=== PATIENT | male | born 1970 | race Caucasian/White ===

== ENCOUNTER 2018-07-23 12:39 | Emergency (ER) | payer BC ==
[2018-07-23] MEDS ORDERED: Sodium Chloride 0.9% 1000 ML 1,000 ML IV SCH (13:00)
[2018-07-23] MEDS ORDERED: TORAdol 30 mg Injection IV ONE (13:01)
[2018-07-23] MEDS ORDERED: Hydromorphone 1 mg/ml Ampule IV ONE (13:01)
[2018-07-23] MEDS ORDERED: Zofran 4 MG/2 ML VIAL IV ONE (13:01)
[2018-07-23] MEDS ORDERED: TORAdol 30 mg Injection ONE (13:03)
[2018-07-23] MEDS ORDERED: Zofran 4 MG/2 ML VIAL ONE (13:03)
[2018-07-23] MEDS ORDERED: Sodium Chloride 0.9% 1000 ML 1,000 ML ONE (13:04)
[2018-07-23] MEDS ORDERED: Hydromorphone 1 mg/ml Ampule ONE (13:04)
[2018-07-23 13:12] LABS: BASOPHIL % 0.4 % (0.0-0.4); Basophil (Absolute #) 0.03 (0-0.4); Eosinophil % 2.3 % (0.00-5.0); Eosinophil (Absolute #) 0.17 (0-0.5); Granulocyte Absolute (ANC) 4.28 (1.4-6.9); Hematocrit 42.6 % (42-50); Hemoglobin 14.7 gm/dl (12.5-18.0); Lymphocyte (Absolute #) 1.73 (1.0-4.6); Lymphocytes % 23.8 % (24.0-44.0); Mean Cell Volume 92.6 fl (78-100); Mean Corpuscular Hgb Concent. 34.5 g/dl (32-36); Monocyte (Absolute #) 1.05 (0.0-1.3); Monocytes % 14.5 % (0.0-12.0); Platelet Count 211 K/mm3 (150-450); White Blood Count 7.3 K/mm3 (4.0-10.5)
--- NOTE | 2018-07-23 13:15 | ERPHSYRPT ---
- History of Present Illness Time Seen by Provider: 07/23/18 12:50 Source: patient Physician History: Patient with a history of kidney stones underwent lithotripsy 6 days ago, followed by a ureter stent insertion the following day at [facility] in [facility], complains of increasing lower abdominal pain over the past 24 hours associated with inability to urinate except for dribbling small amounts and increasing lower abdominal distention. Timing/Duration: today Activites at Onset: none Quality: throbbing Onset Location: suprapubic Pain Radiation: none Severity of Pain-Max: severe Severity of Pain-Current: severe Modifying Factors: Improves With: urinating Associated Symptoms: abdominal pain, urinary frequency Prior abdominal problems: similar symptoms - Review of Systems Constitutional: No Fever, No Chills Eyes: No Symptoms Ears, Nose, & Throat: No Symptoms Respiratory: No Symptoms, No Cough, No Dyspnea Cardiac: No Symptoms, No Chest Pain, No Edema, No Syncope Abdominal/Gastrointestinal: Abdominal Pain, No Nausea, No Vomiting, No Diarrhea Genitourinary Symptoms: Frequency, Incontinence, Urinary Retention, No Dysuria Musculoskeletal: No Symptoms, No Back Pain, No Neck Pain Skin: No Rash Neurological: No Dizziness, No Focal Weakness, No Sensory Changes Psychological: No Symptoms Endocrine: No Symptoms All Other Systems: Reviewed and Negative - Nursing Vital Signs Nursing Vital Signs: Initial Vital Signs Temperature 97.8 F 07/23/18 12:53 Pulse Rate 103 H 07/23/18 12:53 Respiratory Rate 26 H 07/23/18 12:53 Blood Pressure 163/109 07/23/18 12:53 O2 Sat by Pulse Oximetry 100 07/23/18 12:53 Pain Scale Pain Intensity 3 - Physical Exam General Appearance: severe distress Eye Exam: PERRL/EOMI Ears, Nose, Throat Exam: normal ENT inspection Neck Exam: normal inspection, supple Respiratory Exam: normal breath sounds, lungs clear Cardiovascular Exam: regular rate/rhythm, No edema Gastrointestinal/Abdomen Exam: distention (MARKED SUPRAPUBIC DISTENTION TO LEVEL OF UMBILICUS) Back Exam: No CVA tenderness Extremity Exam: normal range of motion, No pedal edema Neurologic Exam: alert, oriented x 3 Ordered Tests: Active Orders 24 hr Category Date Time Status Parker [Catheter-[place] Parker] STAT Care 07/23/18 13:26 Active IV Insertion STAT Care 07/23/18 12:59 Active KUB Stat Exams 07/23/18 13:00 Taken BMP Stat Lab 07/23/18 12:56 Completed CBC W DIFF Stat Lab 07/23/18 12:56 Completed CULTURE,URINE Stat Lab 07/23/18 13:15 Received UA W/RFX UR CULTURE Stat Lab 07/23/18 13:15 Completed Medication Summary Generic Name Dose Route Start Last Admin Trade Name Frelamar PRN Reason Stop Dose Admin Sodium Chloride 1,000 mls @ 100 mls/hr 07/23/18 13:00 07/23/18 13:13 Sodium Chloride 0.9% 1000 Ml IV 08/22/18 12:59 100 mls/hr .Q10H TY Administration Discontinued Medications Generic Name Dose Route Start Last Admin Trade Name Freq PRN Reason Stop Dose Admin Hydromorphone HCl 1 mg 07/23/18 13:01 07/23/18 13:12 Hydromorphone 1 Mg/Ml Ampule IV 07/23/18 13:02 1 mg STAT ONE Administration Hydromorphone HCl Confirm 07/23/18 13:04 Hydromorphone 1 Mg/Ml Ampule Administered 07/23/18 13:05 Dose 1 mg .ROUTE .STK-MED ONE Ceftriaxone Sodium/Dextrose 1 g in 50 mls @ 100 mls/hr 07/23/18 13:46 14:16 Rocephin 1 Gm-D5w 50 Ml Bag IV 07/23/18 14:15 50 ml/hr STAT STA 50 mls/hr Administration Ceftriaxone Sodium/Dextrose Confirm 07/23/18 13:56 Rocephin 1 Gm-D5w 50 Ml Bag Administered 07/23/18 13:57 Dose 1 g in 50 mls @ ud IV .STK-MED ONE Ketorolac Tromethamine 30 mg 07/23/18 13:01 07/23/18 13:11 Toradol 30 Mg Injection IV 07/23/18 13:02 30 mg STAT ONE Administration Ketorolac Tromethamine Confirm 07/23/18 13:03 Toradol 30 Mg Injection Administered 07/23/18 13:04 Dose 30 mg .ROUTE .STK-MED ONE Ondansetron HCl 4 mg 07/23/18 13:01 07/23/18 13:11 Zofran 4 Mg/2 Ml Vial IV 07/23/18 13:02 4 mg STAT ONE Administration Ondansetron HCl Confirm 07/23/18 13:03 Zofran 4 Mg/2 Ml Vial Administered 07/23/18 13:04 Dose 4 mg .ROUTE .STK-MED ONE Lab/Rad Data: Laboratory Result Diagrams 07/23/18 12:56 07/23/18 12:56 Laboratory Results 07/23/18 07/23/18 07/23/18 Range/Units 13:15 12:56 12:56 WBC 7.3 (4.0-10.5) K/mm3 RBC 4.60 (4.1-5.6) M/mm3 Hgb 14.7 (12.5-18.0) gm/dl Hct 42.6 (42-50) % MCV 92.6 (78-100) fl MCH 32.0 (26-32) pg MCHC 34.5 (32-36) g/dl RDW 12.0 (11.5-14.0) % Plt Count 211 (150-450) K/mm3 MPV 10.0 H (6-9.5) fl Gran % 59.0 (36.0-66.0) % Eos # (Auto) 0.17 (0-0.5) Absolute Lymphs (auto) 1.73 (1.0-4.6) Absolute Monos (auto) 1.05 (0.0-1.3) Lymphocytes % 23.8 L (24.0-44.0) % Monocytes % 14.5 H (0.0-12.0) % Eosinophils % 2.3 (0.00-5.0) % Basophils % 0.4 (0.0-0.4) % Absolute Granulocytes 4.28 (1.4-6.9) Basophils # 0.03 (0-0.4) Sodium 139 (137-145) mmol/L Potassium 3.5 (3.5-5.1) mmol/L Chloride 101 (98-107) mmol/L Carbon Dioxide 24 (22-30) mmol/L Anion Gap 17.5 H (5-15) MEQ/L BUN 18 (9-20) mg/dL Creatinine 1.00 (0.66-1.25) mg/dL Estimated GFR > 60.0 ML/MIN Glucose 111 H (74-106) mg/dL Calcium 9.6 (8.4-10.2) mg/dL Urine Color BROWN (YELLOW) Urine Appearance SLIGHTLY CLOUDY (CLEAR) Urine pH 8.0 (5-6) Ur Specific [place] 1.009 (1.005-1.025) Urine Protein 100 (Negative) Urine Ketones NEGATIVE (NEGATIVE) Urine Blood LARGE (0-5) Damian/ul Urine Nitrite NEGATIVE (NEGATIVE) Urine Bilirubin NEGATIVE (NEGATIVE) Urine Urobilinogen NEGATIVE (0-1) mg/dL Ur Leukocyte Esterase SMALL (NEGATIVE) Urine WBC (Auto) 26-50 (0-5) /HPF Urine RBC (Auto) >101 (0-2) /HPF U Epithel Cells (Auto) NONE (FEW) /HPF Urine Bacteria (Auto) MODERATE (NEGATIVE) /HPF Urine Mucus (Auto) SLIGHT (NEGATIVE) /HPF Urine Culture Reflexed YES (NO) Urine Glucose NEGATIVE (NEGATIVE) mg/dL - Progress Progress: improved Progress Note: 07/23/18 14:25 IV NORMAL SALINE 200ML/HR, ZOFRAN 4MG, TORADOL 30MG, DILAUDID 1MG IV, INSERTION OF PARKRE CATHETER, ROCEPHIN 1GM IVPB FOR UTI WBC 26-50 07/23/18 14:55, TOTAL URINE OUTPUT OF 1500ML Counseled pt/family regarding: lab results, diagnosis, need for follow-up, rad results - Departure Time of Disposition: 15:00 Departure Disposition: Home Clinical Impression: ACUTE URINARY RETENTION, URINARY TRACT INFECTION, RECENT BILATERAL URETER STENTS Condition: Stable Critical Care Time: No Referrals: DOCTOR,NO FAMILY [Primary Care Provider] - Additional Instructions: MAINTAIN THE PARKER CATHETER WITH LEG BAG AND CONSULT YOUR UROLOGIST FOR EVALUATION IN 2 DAYS. CONTINUE ALL CURRENT MEDICATIONS DIRECTED. ANTIBIOTIC lEVAQUIN 500MG DAILY FOR 10 DAYS FOR TREATMENT OF URINARY TRACT INFECTION. RETURN TO THE EMERGENCY FOR INCREASING PAIN DISCOMFORT. Prescriptions: Levofloxacin [Levaquin] 500 mg PO DAILY #10 tablet
[2018-07-23 13:19] LABS: ANION GAP 17.5 MEQ/L (5-15); BLOOD UREA NITROGEN 18 mg/dL (9-20); CHLORIDE 101 mmol/L (98-107); Calcium 9.6 mg/dL (8.4-10.2); Carbon Dioxide 24 mmol/L (22-30); Glucose 111 mg/dL (74-106); Potassium 3.5 mmol/L (3.5-5.1); SODIUM 139 mmol/L (137-145)
[2018-07-23 13:34] LABS: Appearance SLIGHTLY CLOUDY (CLEAR); Bilirubin NEGATIVE (NEGATIVE); Blood LARGE Ery/ul (0-5); Glucose NEGATIVE (NEGATIVE); Ketones NEGATIVE (NEGATIVE); Leukocyte Esterase SMALL (NEGATIVE); Nitrite NEGATIVE (NEGATIVE); Protein,Urine Dip 100 (Negative); Specific Gravity 1.009 (1.005-1.025); Urobilinogen NEGATIVE mg/dL (0-1)
[2018-07-23] MEDS ORDERED: ROCEPHIN 1 Gm-D5w 50 ml Bag** 1 G/50 ML IVPB IV STA (13:46)
[2018-07-23] MEDS ORDERED: ROCEPHIN 1 Gm-D5w 50 ml Bag** 1 G/50 ML IVPB IV ONE (13:56)
[2018-07-23 15:07] VITALS: BP 133/83; PULSE 87; O2SAT 96
--- NOTE | 2018-07-23 15:53 | XRAY ---
Indication: Lower abdominal pain. Comparison: None KUB nonacute and nonobstructed with bilateral ureteral stent catheters and pelvic phleboliths. Solid organs and osseous structures unremarkable.
== END 2018-07-23 15:06 | disposition home or self-care (01) ==
LOC: ED 12:39
DX: R33.9 Retention of urine, unspecified (principal); N39.0 Urinary tract infection, site not specified; R10.9 Unspecified abdominal pain; Z98.890 Other specified postprocedural states
CPT/HCPCS: 36000; 36415; 51702; 74018; 80048; 81001; 85025; 87086; 96360; 96365; 96374; 96375; 99284; J0696; J1170; J1885; J2405

== ENCOUNTER 2019-08-20 11:03 | Emergency (ER) | payer BC ==
[2019-08-20 11:19] VITALS: PULSE 90; O2SAT 99
[2019-08-20] MEDS ORDERED: TYLENOL EXTRA STRENGTH 500 MG PO STA (11:22)
[2019-08-20] MEDS ORDERED: TYLENOL EXTRA STRENGTH 500 MG ONE (11:24)
--- NOTE | 2019-08-20 11:28 | ERPHSYRPT ---
- History of Present Illness Time Seen by Provider: 08/20/19 11:12 Source: patient Exam Limitations: no limitations Patient Subjective Stated Complaint: Pt states "I have been fighting this head cold thing for awhile and I have so much pressure behind my right eye it feels like it is about to pop my eye out." Triage Nursing Assessment: Pt presented alert and oriented X 3, skin wd Pt ambulates with an uprigth steady gait, able to speak in clear full sentences pt eyes are watery and he is congested. Physician History: The patient is a 49-year-old male who presents with a chief complaint a right frontal headache and right maxillary pain and tenderness has been present for the past few days. His endorse having sinus congestion for the past couple weeks to include initially. Rhinorrhea mainly coming from the right nostril that since turned clear rhinorrhea. He's also endorsed having a subjective fever a week ago with the onset of his symptoms in addition to a dry cough and sore throat. He's had recent sick contacts to include his kids who tested positive for RSV. He reportedly has been taking some [id number] cough and cold medicine without any relief in his symptoms. The pain is now described as a sharp pain that is located behind the right retro -orbital region is constant and moderate in severity. He's not take anything for pain prior to arrival to the emergency department. He denies diplopia, eye pain with moving his eyes, changes in his visual acuity , nausea, vomiting and neck pain. Timing/Duration: week(s) (2) Severity: moderate Modifying Factors: Improves With: ibuprofen Associated Symptoms: cough, No nausea, No vomiting, No abdominal pain Allergies/Adverse Reactions: No Known Drug Allergies Allergy (Unverified 08/20/19 11:13) Hx Tetanus, Diphtheria Vaccination/Date Given: No Hx Influenza Vaccination/Date Given: No Hx Pneumococcal Vaccination/Date Given: No Immunizations Up to Date: Yes - Review of Systems Constitutional: Fever, Chills Eyes: No Eye Pain, No Eye Redness, No Photophobia, No Foreign Body Sensation Ears, Nose, & Throat: Nose Congestion, Nose Discharge, Sinus Drainage, Throat Pain, No Ear Pain, No Ear Discharge, No Throat Swelling, No Snoring, No Stridor Respiratory: Cough, No Cyanosis, No Dyspnea, No Dyspnea on Exertion (ARANA) Cardiac: No Chest Pain Abdominal/Gastrointestinal: No Abdominal Pain, No Nausea, No Vomiting Genitourinary Symptoms: No Symptoms Musculoskeletal: No Symptoms Skin: No Symptoms Neurological: Headache Psychological: No Symptoms Endocrine: No Symptoms Immunological/Allergic: No Symptoms All Other Systems: Reviewed and Negative - Past Medical History Pertinent Past Medical History: Yes History: Other Other Medical History: kidney stones x 3 - Past Surgical History Past Surgical History: Yes Genitourinary: Other Other Surgical History: stent x 2 placement on wednesday - Social History Smoking Status: Never smoker Exposure to second hand smoke: No Drug Use: none Patient Lives Alone: No - Nursing Vital Signs Nursing Vital Signs: Initial Vital Signs Temperature 97.4 F 08/20/19 11:07 Pulse Rate 90 08/20/19 11:07 Respiratory Rate 18 08/20/19 11:07 Blood Pressure 186/110 08/20/19 11:07 O2 Sat by Pulse Oximetry 99 08/20/19 11:07 Pain Scale Pain Intensity 10 - Physical Exam General Appearance: no apparent distress Eye Exam: PERRL/EOMI, eyes nml inspection, post op pupil defect (R), other (No pain with moving eyes), No scleral icterus, No pale conjunctivae, No photophobia , No EOM palsy/anisocoria Ears, Nose, Throat Exam: TMs normal, pharynx normal, moist mucous membranes, other (Tenderness with palpation and tapping of R frontal and maxillary sinus), No dry mucous membranes, No TM abnormal (R), No TM abnormal (L), No pharyngeal erythema, No tonsillar exudate Neck Exam: normal inspection, non-tender, supple, No meningismus Respiratory Exam: normal breath sounds, lungs clear, airway intact, No chest tenderness, No respiratory distress, No diminished breath sounds, No accessory muscle use, No prolonged expirations Cardiovascular Exam: regular rate/rhythm, normal heart sounds, normal peripheral pulses, capillary refill <2 sec, No murmur, No friction rub, No gallop, No tachycardia Gastrointestinal/Abdomen Exam: soft, No tenderness, No distention, No mass, No guarding, No ecchymosis Male Genitalia Exam: normal genitalia Rectal Exam: deferred Back Exam: normal inspection Extremity Exam: normal inspection Neurologic Exam: alert, oriented x 3, cooperative Skin Exam: normal color, warm, dry, No rash, No petechiae, No jaundice Lymphatic Exam: No adenopathy SpO2: 99 O2 Delivery: Room Air - Course Nursing assessment & vital signs reviewed: Yes Ordered Tests: Medication Summary Discontinued Medications Generic Name Dose Route Start Last Admin Trade Name Nury PRN Reason Stop Dose Admin Acetaminophen 1,000 mg 08/20/19 11:22 08/20/19 11:25 Tylenol Extra Strength 500 Mg PO 08/20/19 11:23 1,000 mg STAT STA Administration Acetaminophen Confirm 08/20/19 11:24 Tylenol Extra Strength 500 Mg Administered 08/20/19 11:25 Dose 1,000 mg .ROUTE .[employer] ONE - Progress Progress: unchanged Progress Note: 08/20/19 11:32 Nontoxic in appearance. The patient is likely suffering from acute sinusitis and given that he's had symptoms for 2 weeks and with worsening pain noted to the right maxillary sinus and right frontal sinus ahead and treat with antibiotics consisting of Augmentin. I'll also prescribe aggressive decongestant therapy with saline nasal spray, and Afrin, Mucinex and instructed to take Tylenol be purchased [id number] for pain in addition to naproxen scheduled. He is instructed to followup with her primary care provider as needed or return to the emergency department the symptoms were to become worse. He agreed with him verbally understood the discharge plan. Counseled pt/family regarding: diagnosis, need for follow-up - Departure Departure Disposition: Home Clinical Impression: Acute bacterial sinusitis Condition: Stable Critical Care Time: No Referrals: DOCTOR,NO FAMILY [Primary Care Provider] - Instructions: Sinusitis, Adult (DC) Prescriptions: Amoxicillin/Potassium Clav [Augmentin 875-125 Tablet] 1 each PO BID 10 Days #20 tablet Guaifenesin [Mucinex] 600 mg PO BID 10 Days #20 tab.er.12h Naproxen 500 mg [Naprosyn 500 MG] 500 mg PO BID #10 tablet Oxymetazoline HCl [Afrin] 1 spray NS BID 3 Days #1 bottle Sodium Chloride [Saline Nasal Cutler] 30 ml NS BID PRN #1 spray
[2019-08-20 11:45] VITALS: BP 172/118
== END 2019-08-20 11:44 | disposition home or self-care (01) ==
LOC: ED 11:03
DX: J01.80 Other acute sinusitis (principal)
CPT/HCPCS: 99283; A9270-GY

== ENCOUNTER 2020-01-12 10:05 | Emergency (ER) | payer BC ==
[2020-01-12] MEDS ORDERED: TORAdol 30 mg Injection ONE (10:35)
[2020-01-12] MEDS ORDERED: Norflex 60 MG/2 ML ONE (10:35)
[2020-01-12] MEDS: TORAdol 30 mg Injection IM ONE ×2 (10:41→10:44)
[2020-01-12] MEDS: Norflex 60 MG/2 ML IM ONE ×2 (10:41→10:44)
[2020-01-12 11:10] VITALS: BP 167/110; PULSE 73; O2SAT 97
--- NOTE | 2020-01-12 11:15 | XRAY ---
Indication: Low back pain. Right leg numbness. Cauda equina syndrome. Multiple contiguous axial images obtained through the lumbar spine. Sagittal and coronal reformatted images obtained. Comparison: None Axial images negative for acute fracture, suspicious bony lesions, or gross spinal canal stenosis. Minimal multilevel anterior endplate spurring. There is mild/moderate annular disc bulge at the L2-L3-L4 levels. Remaining disc levels negative for gross disc herniation. Facets are symmetric. Conus medullaris and lumbosacral nerve roots not well evaluated on CT imaging. Sagittal and coronal reformatted images demonstrates normal lumbar lordosis with minimal levoscoliosis centered at the L3-L4 level. Minimal multilevel disc space narrowing, greatest at the L2-L3 level. Negative acute fracture or subluxation. Visualized noncontrasted soft tissues demonstrates a few nonobstructing left renal microcalculi. Impression: 1. Multilevel endplate spurring and L2-L4 degenerative disc bulge better evaluated with outpatient MRI. 2. Cauda equina syndrome not evaluated on CT. MRI may yield further information if clinically warranted. 3. Incidental minimal levoscoliosis and nonoabstructing left renal microcalculi. 4. Remaining CT lumbar spine without contrast exam is negative.
--- NOTE | 2020-01-12 11:45 | ERPHSYRPT ---
- History of Present Illness Time Seen by Provider: 01/12/20 10:41 Source: patient Patient Subjective Stated Complaint: Pt stated that he has been having back pain off and on since October and does not have a PCP, woke up this morning and it is effecting his right leg and its movement and the pain goes all the way to his draper, he has a hx of a herniated L2 approx 20 years ago, he states that his pain in his back is on the right lower side and goes around his hip and radiates to his draper Triage Nursing Assessment: Pt had a friend bring him to the ER, pt states that his right leg feels tingly like it is asleep, hypertensive, pulses normal, rates pain to back as 01/16, skin n/w/d, denies pain with palpatation but states when you let go that it feels like a small spasm, pt walked into the ER with an unsteady gait, pt doesn't appear to be in any distress Physician History: 49 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 Pain is in the low back bilaterally usually but since yesterday he is having some radiation to right lower extremity, moderate intensity dull aching to sharp in nature, aggravated with activity and partial relief with rest and ibuprofen. Denies any weakness in the lower extremity but has some burning sensation/numbness on the lateral side of thigh and draper area. Denies any loss of bowel or bladder control or perineal sensations. Patient report his work involves a lot of turning/twisting which aggravates his pain. Denies any direct trauma to the back. Denies any difficulty ambulation. Timing/Duration: week(s), intermittent, gradual onset Quality: dull, radiating, sharp Back Pain Location: lumbar spine Back Pain Radiation: upper legs, lower legs Severity of Pain-Max: moderate Severity of Pain-Current: mild Modifying Factors: Improves With: movement, pain medication Associated Symptoms: lower back pain, No weakness Previous symptoms: no prior history Allergies/Adverse Reactions: No Known Drug Allergies Allergy (Verified 01/12/20 10:25) Hx Tetanus, Diphtheria Vaccination/Date Given: No Hx Influenza Vaccination/Date Given: No Hx Pneumococcal Vaccination/Date Given: No Travel Risk - International Travel Have you traveled outside of the country in past 3 weeks: No Have you or anyone close to you been diagnosed with or: No Do your reside in a community with a known COVID-19 case?: Yes If Yes where:: [place] - Coronavirus Screening Has patient experienced Coronavirus symptoms: No - Review of Systems Constitutional: No Symptoms Eyes: No Symptoms Ears, Nose, & Throat: No Symptoms Respiratory: No Symptoms Cardiac: No Symptoms Abdominal/Gastrointestinal: No Symptoms Genitourinary Symptoms: No Symptoms Musculoskeletal: Back Pain Skin: No Symptoms Neurological: No Symptoms Psychological: No Symptoms Endocrine: No Symptoms - Past Medical History Pertinent Past Medical History: Yes History: Other Other Medical History: kidney stones x 3 - Past Surgical History Past Surgical History: Yes Gastrointestinal: Appendectomy Genitourinary: Other Other Surgical History: stent x 2 placement on wednesday, something cardiac to fix his rhythm - Social History Smoking Status: Never smoker Exposure to second hand smoke: No Drug Use: none Patient Lives Alone: No - Nursing Vital Signs Nursing Vital Signs: Initial Vital Signs Temperature 99.1 F 01/12/20 10:08 Pulse Rate 82 01/12/20 10:08 Blood Pressure 166/106 01/12/20 10:08 Pain Scale Pain Intensity 7 - Physical Exam General Appearance: no apparent distress Eye Exam: eyes nml inspection Ears, Nose, Throat Exam: normal ENT inspection Neck Exam: normal inspection, supple, full range of motion Respiratory Exam: normal breath sounds, lungs clear Cardiovascular Exam: regular rate/rhythm, normal heart sounds Gastrointestinal Exam: soft, No tenderness Back Exam: normal inspection, normal range of motion, vertebral tenderness, muscle spasm, No CVA tenderness Extremity Exam: normal inspection, normal range of motion, pelvis stable, No calf tenderness Neurologic Exam: alert, oriented x 3, cooperative, 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, normal mood/affect, No motor weakness Skin Exam: normal color, warm SpO2 Interpretation: normal SpO2: 97 O2 Delivery: Room Air - Course Nursing assessment & vital signs reviewed: Yes Ordered Tests: Active Orders 24 hr Category Date Time Status LUMBAR SPINE W/O [CT] Stat Exams 01/12/20 10:30 Completed Medication Summary Discontinued Medications Generic Name Dose Route Start Last Admin Trade Name Freq PRN Reason Stop Dose Admin Ketorolac Tromethamine 30 mg 01/12/20 10:30 01/12/20 10:44 Toradol 30 Mg Injection IM 01/12/20 10:31 Not Given STAT ONE Ketorolac Tromethamine Confirm 01/12/20 10:35 Toradol 30 Mg Injection Administered 01/12/20 10:36 Dose 30 mg .ROUTE .STK-MED ONE Orphenadrine Citrate 60 mg 01/12/20 10:30 01/12/20 10:44 Norflex 60 Mg/2 Ml IM 01/12/20 10:31 Not Given STAT ONE Orphenadrine Citrate Confirm 01/12/20 10:35 Norflex 60 Mg/2 Ml Administered 01/12/20 10:36 Dose 60 mg .ROUTE .STK-MED ONE - Progress Progress: unchanged Progress Note: 49 years old presented with low back pain with radiation to right lower extremity which is a new thing from previous back pain. He has some burning sensation on the lateral thigh and draper area but no weakness. No loss of bowel or bladder control. He is offered pain medication and muscle relaxant but he refused. He is not in any distress. No difficulty ambulation. I have obtained CT without contrast for lumbar spine which did not show any significant spinal stenosis but has some degenerative changes with some disc bulge. This is probably the reason for his nerve root compression. Does not have any other cauda equina symptoms. Patient is recommended to have MRI done outpatient for further evaluation. Discussed signs symptoms of worsening needing return to ER which he seems understanding. We will continue with NSAIDs and muscle relaxant to go home. Counseled pt/family regarding: diagnosis, need for follow-up, rad results - Departure Departure Disposition: Home Clinical Impression: Back pain Qualifiers: Back pain location: low back pain Chronicity: unspecified Back pain laterality : right Sciatica presence: with sciatica Sciatica laterality: sciatica of right side Qualified Code(s): M54.41 - Lumbago with sciatica, right side Condition: Stable Critical Care Time: No Referrals: DOCTOR,NO FAMILY [Primary Care Provider] - JAYNA ALLEN [ACTIVE STAFF] - (1-2 days for reevaluation) Instructions: Low Back Pain (DC), Sciatica (DC) Additional Instructions: Take Tylenol/ibuprofen as needed. Follow-up with your primary care physician for reevaluation and may need an outpatient MRI. Return to ER for intractable pain, numbness tingling weakness of lower extremities, loss of bowel or bladder control/perineal numbness. Prescriptions: Ibuprofen 600 mg PO Q6HPRN PRN 20 Days #40 tablet PRN Reason: Pain Methocarbamol [Robaxin-750] 750 mg PO TID #30 tablet
== END 2020-01-12 11:52 | disposition home or self-care (01) ==
LOC: ED 10:05
DX: M54.41 Lumbago with sciatica, right side (principal)
CPT/HCPCS: 72131; 99283; J1885; J2360

== ENCOUNTER 2020-05-10 11:31 | Emergency (ER) | payer BC ==
--- NOTE | 2020-05-10 12:46 | XRAY ---
Indication: Cough. Comparison: None Portable chest demonstrates normal heart, lungs, and bony thorax.
[2020-05-10 12:47] LABS: Absolute Neutrophil Ct (ANC) 2.89 (1.4-6.9); BASOPHIL % 0.6 % (0.0-0.4); Basophil (Absolute #) 0.04 (0-0.4); Eosinophil % 2.4 % (0.00-5.0); Eosinophil (Absolute #) 0.15 (0-0.5); Hematocrit 49.1 % (42-50); Hemoglobin 16.5 gm/dl (12.5-18.0); Lymphocyte (Absolute #) 2.52 (1.0-4.6); Lymphocytes % 40.7 % (24.0-44.0); Mean Cell Volume 94.2 fl (78-100); Mean Corpuscular Hemoglobin 31.7 pg (26-32); Mean Corpuscular Hgb Concent. 33.6 g/dl (32-36); Mean Platelet Volume 10.2 fl (7.5-11.0); Monocyte (Absolute #) 0.59 (0.0-1.3); Monocytes % 9.5 % (0.0-12.0); Neutrophil % 46.8 % (36.0-66.0); Platelet Count 185 K/mm3 (150-450); Red Blood Count 5.21 M/mm3 (4.1-5.6); Red Cell Distribution Width 12.3 % (11.5-14.0); White Blood Count 6.2 K/mm3 (4.0-10.5)
[2020-05-10 12:58] LABS: ALKALINE PHOSPHATASE 86 U/L (38-126); ANION GAP 14.5 MEQ/L (5-15); BLOOD UREA NITROGEN 15 mg/dL (9-20); CHLORIDE 106 mmol/L (98-107); Calcium 9.9 mg/dL (8.4-10.2); Carbon Dioxide 23 mmol/L (22-30); Creatinine 1 1.03 mg/dL (0.66-1.25); EST GLOMERULAR FILTRATION RATE > 60.0 ML/MIN; Glucose 107 mg/dL (74-106); Potassium 3.9 mmol/L (3.5-5.1); SGOT/AST 44 U/L (17-59); SGPT/ALT 66 U/L (0-50); SODIUM 140 mmol/L (137-145); Total Protein 8.5 g/dL (6.3-8.2)
--- NOTE | 2020-05-10 13:15 | ERPHSYRPT ---
- History of Present Illness Time Seen by Provider: 05/10/20 11:44 Patient Subjective Stated Complaint: Cough/fever Triage Nursing Assessment: Patient ambulated back to ED and transferred self to bed. Patient A+O X 3. Patient's skin pink, warm and dry. Patient complains of fever since Wednesday as high as 100.7. Patient states a non productive cough started yesterday. Patient complains of body aches all over. Patient's lungs clear a/p georges. No sob noted. Physician History: 50 years old generally healthy male presented in the ER with 5 days history of off-and-on fever with a T-max of 101.7 associated with generalized body aches, improved with Tylenol. Since yesterday is having dry cough but no shortness of breath. Denies any known sick contact patient reports his is starting to get similar symptoms now. No nausea vomiting or diarrhea. Timing/Duration: day(s) (5), intermittent, sudden Cough Quality/Degree: mild, dry cough Possible Cause: no prior episodes Associated Symptoms: fever, cough, muscle aches, No earache, No facial pain, No lightheadedness, No nasal congestion, No nasal drainage, No shortness of breath, No sinus infection, No sore throat, No wheezing Allergies/Adverse Reactions: No Known Drug Allergies Allergy (Verified 05/10/20 11:36) Home Medications: No Reportable Medications [No Reported Medications] 05/10/20 [History] Hx Tetanus, Diphtheria Vaccination/Date Given: No Hx Influenza Vaccination/Date Given: No Hx Pneumococcal Vaccination/Date Given: No Immunizations Up to Date: Yes Travel Risk - International Travel Have you traveled outside of the country in past 3 weeks: No - Coronavirus Screening Are you exhibiting any of the following symptoms?: Yes Symptoms: Fever, Cough: New Onset, Headaches/Body Aches/Fatigue Close contact with a COVID-19 positive Pt in past 14-21 Days: No - Review of Systems Constitutional: Fever, Chills, Fatigue, Malaise Eyes: No Symptoms Ears, Nose, & Throat: No Symptoms Respiratory: Cough Cardiac: No Symptoms Abdominal/Gastrointestinal: No Symptoms Genitourinary Symptoms: No Symptoms Musculoskeletal: Myalgias Skin: No Symptoms Neurological: No Symptoms Psychological: No Symptoms Endocrine: No Symptoms Hematologic/Lymphatic: No Symptoms Immunological/Allergic: No Symptoms - Past Medical History Pertinent Past Medical History: Yes Neurological History: No Pertinent History ENT History: No Pertinent History Cardiac History: No Pertinent History Respiratory History: No Pertinent History Endocrine Medical History: No Pertinent History Musculoskeletal History: Fractures History: Other Other Medical History: L wrist fx in past - Past Surgical History Past Surgical History: Yes Neuro Surgical History: No Pertinent History Cardiac: Cardiac Stent Respiratory: No Pertinent History Gastrointestinal: Appendectomy Genitourinary: Other Musculoskeletal: No Pertinent History Male Surgical History: No Pertinent History Other Surgical History: stent x 2 placement something cardiac to fix his rhythm - Social History Smoking Status: Never smoker Exposure to second hand smoke: No Drug Use: none Patient Lives Alone: No - Nursing Vital Signs Nursing Vital Signs: Initial Vital Signs Temperature 97.8 F 05/10/20 11:37 Pulse Rate 97 H 05/10/20 11:37 Respiratory Rate 18 05/10/20 11:37 Blood Pressure 152/94 05/10/20 11:37 O2 Sat by Pulse Oximetry 97 05/10/20 11:37 Pain Scale Pain Intensity 0 - Physical Exam General Appearance: no apparent distress, alert Eye Exam: PERRL/EOMI, eyes nml inspection Ears, Nose, Throat Exam: normal ENT inspection, pharyngeal erythema Neck Exam: normal inspection, non-tender, supple, full range of motion Respiratory Exam: normal breath sounds, lungs clear, No chest tenderness Cardiovascular Exam: regular rate/rhythm, normal heart sounds Gastrointestinal/Abdomen Exam: soft, normal bowel sounds, No tenderness Back Exam: normal inspection Extremity Exam: normal inspection, normal range of motion Neurologic Exam: alert, oriented x 3, cooperative Skin Exam: normal color SpO2 Interpretation: normal SpO2: 97 O2 Delivery: Room Air Ordered Tests: Active Orders 24 hr Category Date Time Status CHEST 1 VIEW (PORTABLE) Stat Exams 05/10/20 12:03 Completed BLOOD CULTURE Stat Lab 05/10/20 12:20 Received CBC W DIFF Stat Lab 05/10/20 12:20 Completed CMP Stat Lab 05/10/20 12:20 Completed Lactic Acid Stat Lab 05/10/20 12:32 Completed Lab/Rad Data: Laboratory Result Diagrams 05/10/20 12:20 05/10/20 12:20 Laboratory Results 05/10/20 05/10/20 05/10/20 Range/Units 12:32 12:20 12:20 WBC 6.2 (4.0-10.5) K/mm3 RBC 5.21 (4.1-5.6) M/mm3 Hgb 16.5 (12.5-18.0) gm/dl Hct 49.1 (42-50) % MCV 94.2 (78-100) fl MCH 31.7 (26-32) pg MCHC 33.6 (32-36) g/dl RDW 12.3 (11.5-14.0) % Plt Count 185 (150-450) K/mm3 MPV 10.2 (7.5-11.0) fl Gran % 46.8 (36.0-66.0) % Eos # (Auto) 0.15 (0-0.5) Absolute Lymphs (auto) 2.52 (1.0-4.6) Absolute Monos (auto) 0.59 (0.0-1.3) Lymphocytes % 40.7 (24.0-44.0) % Monocytes % 9.5 (0.0-12.0) % Eosinophils % 2.4 (0.00-5.0) % Basophils % 0.6 (0.0-0.4) % Absolute Granulocytes 2.89 (1.4-6.9) Basophils # 0.04 (0-0.4) Sodium 140 (137-145) mmol/L Potassium 3.9 (3.5-5.1) mmol/L Chloride 106 (98-107) mmol/L Carbon Dioxide 23 (22-30) mmol/L Anion Gap 14.5 (5-15) MEQ/L BUN 15 (9-20) mg/dL Creatinine 1.03 (0.66-1.25) mg/dL Estimated GFR > 60.0 ML/MIN Glucose 107 H (74-106) mg/dL Lactic Acid 2.0 (0.4-2.0) Calcium 9.9 (8.4-10.2) mg/dL Total Bilirubin 0.60 (0.2-1.3) mg/dL AST 44 (17-59) U/L ALT 66 H (0-50) U/L Alkaline Phosphatase 86 (38-126) U/L Serum Total Protein 8.5 H (6.3-8.2) g/dL Albumin 5.0 (3.5-5.0) g/dL - Progress Progress: re-examined Air Movement: good Progress Note: 05/10/20 13:23 Patient is afebrile in here. No signs of distress. X-rays negative for pneumonic infiltrates. Normal white count. Lactate upper limit of normal. COVID-19 testing is obtained. I believe patient has viral etiology symptoms. Do not think needs antibiotic. Recommended precautions and supportive care and outpatient follow-up. Discussed signs symptoms of worsening needing return to ER which he seems understanding. Stable for discharge. Blood Culture(s) Obtained: No Antibiotics given: No Counseled pt/family regarding: lab results, diagnosis, need for follow-up, rad results - Departure Departure Disposition: Home Clinical Impression: Viral syndrome, Cough Condition: Stable Critical Care Time: No Referrals: JAYNA ALLEN [Primary Care Provider] - Follow Up with PCP/3 days Instructions: Cough, Adult (DC), Viral Syndrome (DC) Additional Instructions: Drink plenty of fluids. Take Tylenol as needed. Follow-up with your primary care physician for reevaluation. Follow contact/droplet precautions until your COVID-19 testing is back. Return to ER for worsening cough/fever/shortness of breath etc.
[2020-05-10 13:22] LABS: INFLUENZA A NEGATIVE (NEGATIVE); INFLUENZA B NEGATIVE (NEGATIVE); RESPIRATORY SYNCTIAL VIRUS NEGATIVE (Negative)
[2020-05-10 13:35] VITALS: BP 146/98; PULSE 78; O2SAT 98
== END 2020-05-10 13:34 | disposition home or self-care (01) ==
LOC: ED 11:31
DX: B34.9 Viral infection, unspecified (principal); R05 Cough
CPT/HCPCS: 36415; 71045; 80053; 83605; 85025; 87040; 87631; 99284; U0003